=== PATIENT | female | born 1940 | race Caucasian/White ===

== ENCOUNTER → 2017-02-02 | Day surgery (SDC) | payer OTHER ==
[2017-01-13 13:41] VITALS: Ht 160 cm; Wt 80.5 kg
[~2017-02-02] VITALS: Ht 160 cm; Wt 80.5 kg
[~2017-02-02] MED LIST: 500ML BSS 0.3ML EPI 1:1000PF IRRIG ONE; ACETAMINOPHEN 325 MG TAB PO PRN; ALPPOPS5 OP; AMOX500C3 PO; AMVISC PLUS 0.8ML SYRINGE INT OCU ONE; ATOR10TA88 PO; AcetaZOLAMIDE 250 MG TAB PO SCH; BETAXOLOL HCL 0.25% OP SUSP PER DROP CHARGE OPR SCH; BRIMONIDINE TART 0.2% OP SOLN PER DROP CHARGE ONE; BSS FLUSH ONE; ENDOCOAT 0.85ML SYRINGE INT OCU ONE; EpINEphrine INJ 1MG/ML AMP 1 MG/ML AMP ONE; LACTATED RINGER'S 1000ML 500 ML IV SCH; LEVO88TA3 PO; LIDOCAINE 4% OP SOLN DROP CHARGE ONE; LIDOCAINE 4% OP SOLN DROP CHARGE OPR SCH; LIDOCAINE HCL 1% MPF 2 ML VIAL ONE; MIDAZOLAM HCL 1 MG/ML 2ML VIAL ONE; MIX: 4ML BSS 1ML EPI 1:1000 PF INSTIL ONE; MOXIFLOXACIN OPH SOLN PER DROP CHARGE ONE; OCUCOAT 1 ML SOLN IO ONE; OFLO0.3S4 OPL; PHENYLEPHRINE HCL 10% OP SOLN PER DROP CHARGE OPR SCH; POVIDONE-IODINE OP SOLN 30 ML BTL ONE; PRED1SUS3 OPL; PROPARACAINE 0.5% OP SOLN PER DROP CHARGE OPR SCH; PROPARACAINE HCL 0.5% OP SOLN 15 ML BTL OPR ONE; TOBRAMYCIN/DEXAMETHASONE OPH OINT PER APPLN CHARGE ONE
--- NOTE | 2017-02-02 06:41 | History & Physical Bridge - [place] ---
H&P Re-Evaluation Bridge Note: I have examined the patient, reviewed the History & Physical and in the interval since the performance of the History & Physical I have noted the following changes of clinical significance: No changes noted
[2017-02-02] MEDS: PHENYLEPHRINE HCL 2.5% OP SOLN PER DROP CHARGE OPR SCH ×2 (06:49→06:55)
[2017-02-02] MEDS: TROPICAMIDE 1% OP SOLN PER DROP CHARGE OPR SCH ×2 (06:50→06:55)
[2017-02-02] MEDS: CYCLOPENTOLATE HCL 1% OP SOLN PER DROP CHARGE OPR SCH ×2 (06:51→06:56)
[2017-02-02] MEDS: MOXIFLOXACIN OPH SOLN PER DROP CHARGE OPR SCH ×2 (06:52→07:08)
--- NOTE | 2017-02-02 07:59 | Discharge Instructions-SurgCtr ---
Discharge Instructions Date of Service Feb 02, 2017. Visit Reason for Visit: Cataract Right Eye Discharge Discharge Diagnosis / Problem: lens implant right eye Discharge Goals Goal(s): Improve function Activity Recommendations Activity Limitations: resume your previous activity Lifting Limitations: no more than 10 pounds Exercise/Sports Limitations: gradually increase as tolerated May Resume Sexual Activity: when tolerated Shower/Bathe: tomorrow Driving or Machine Use: resume 1 day after discharge Anesthesia . Post Anesthesia Instructions: If you have had General Anesthesia or IV Sedation: * Do not drive today. * Resume driving when surgeon permits. * Do not make important decisions or sign legal documents today. * Call surgeon for: 1. Temperature elevations greater than 101 degrees F. 2. Uncontrollable pain. 3. Excessive bleeding. 4. Persistent nausea and vomiting. 5. Medication intolerance (nausea, vomiting or rash). * For nausea and vomiting use only clear liquids such as: tea, soda, bouillon until nausea subsides, then gradually increase diet as tolerated. * If you have any concerns or questions, call your surgeon's office. If physician is unavailable and it is an emergency, call 911 or go to the nearest emergency room. . Instructions / Follow-Up Instructions / Follow-Up ACTIVITY RECOMMENDATIONS: * Light activities. * Mild irritation and blurred vision are common for the first few days. * You may walk outside, read, watch television. * Redness around the white part of the eye is common. MEDICATIONS: Resume previous medications unless instructed otherwise by your surgeon. * Take white Diamox (Acetazolamide) tablet at 1 pm today. Start all eye drops at 1 pm today: * Eye drops (today and tomorrow): Prednisone - one drop in operative eye every 3 hours while awake Ofloxacin - one drop in operative eye every 3 hours while awake SPECIAL CARE INSTRUCTIONS: * Tape plastic shield over eye to sleep at night. Call your doctor at with any concerns or problems. FOLLOW UP VISIT: Follow-up with Dr Barton at [place] office as scheduled. Diet Recommendations Home Diet: no limitations Procedures Procedures Performed: right eye femtosecond laser Pending Studies Studies pending at discharge: no Medical Emergencies . Who to Call and When: Medical Emergencies: If at any time you feel your situation is an emergency, please call 911 immediately. . Non-Emergent Contact Non-Emergency issues call your: Motor Electrician Call Non-Emergent contact if: your pain is not controlled [phone] . . "Provider Documentation" section prepared by Rich Barton. .
--- NOTE | 2017-02-02 08:03 | [facility] Operative Report ---
Operative Report Date of Service Feb 02, 2017. Operative Report 1. PREOPERATIVE DIAGNOSIS: Senile nuclear cataract, right eye. 2. POSTOPERATIVE DIAGNOSIS: Senile nuclear cataract, right eye. 3. PROCEDURE: Phacoemulsification of right cataract with posterior chamber lens implant, type Bausch [employer] Lomb, model MI60L, power +19.50 diopters. ANESTHESIA: Local standby. SURGEON: Dr. Barton. COMPLICATIONS: None. OPERATING TIME: 15 minutes. 4. OPERATION AND FINDINGS: DESCRIPTION OF PROCEDURE: The right pupil was dilated. The patient was transported to the Femto Laser room. The Femto Laser was used to make the primary incision, an astigmatic incision, and to soften the lens. The patient was transported to the operating room. The anesthetic was administered using a topical technique. The right eye was prepped and draped. A speculum was placed. A clear corneal incision was formed. The chamber was filled with Amvisc Plus and Endocoat. Epinephrine solution was used. A paracentesis was placed. A capsulorrhexis was performed. The nucleus was hydrodissected. The dense lens was removed with phacoemulsification. Time was 5.95 seconds. The aspiration unit was used to remove the cortex. The capsule was filled with Amvisc Plus. The lens implant was folded and placed into the capsule. The incisions were hydrated. The Amvisc was aspirated. The wound was secured with ReSure Sealant. The chamber was deep. The pupil was round. TobraDex ointment and Vigamox solution were placed. The speculum was removed. The patient was returned to the Recovery Room in stable condition. I attest to the content of the Intraoperative Record and any orders documented therein. Any exceptions are noted below. The scribe's documentation has been prepared in my presence, under my direction and personally reviewed by me in its entirety. I confirm that the note above accurately reflects all work, treatment, procedures, and medical decision making performed by me. I personally scribed for Rich Barton M.D. ([facility]) on 02/02/17 at 08:03. Electronically submitted by Елена Raymundo ([facility]).
--- NOTE | 2017-02-02 08:14 | Anesthesia Progress Nt - [facility] ---
Anesthesia Post Op Note Date & Time Feb 02, 2017 at 08:14 Vital Signs Pain Intensity: 0 Vital Signs Past 12 Hours Date Time Temp Pulse Resp B/P (MAP) Pulse Ox O2 Delivery O2 Flow Rate FiO2 02/02/17 08:03 36.1 75 16 162/81 (108) 98 Room Air 02/02/17 07:38 73 16 166/85 95 02/02/17 07:32 74 16 181/87 94 02/02/17 06:42 36.7 73 16 157/85 (109) 96 Room Air Notes Mental Status: alert / awake / arousable, participated in evaluation Pt Amnestic to Procedure: Yes Nausea / Vomiting: adequately controlled Pain: adequately controlled Airway Patency, RR, SpO2: stable & adequate BP & HR: stable & adequate Hydration State: stable & adequate Anesthetic Complications: no major complications apparent
[2017-02-02 08:31] VITALS: BP 143/78; PULSE 62; TEMP 36.2; O2SAT 99
== END | disposition home or self-care (01) ==
LOC: X.SURG 06:22
PROVIDERS: ATTEND Specialist
DX: H25.11 Age-related nuclear cataract, right eye (principal); E03.9 Hypothyroidism, unspecified; K21.9 Gastro-esophageal reflux disease without esophagitis; Z79.82 Long term (current) use of aspirin; I34.1 Nonrheumatic mitral (valve) prolapse; E78.5 Hyperlipidemia, unspecified

== ENCOUNTER → 2017-02-23 | Day surgery (SDC) | payer OTHER ==
[2017-02-10 14:39] VITALS: Ht 160 cm; Wt 80.5 kg
[~2017-02-23] VITALS: Ht 160 cm; Wt 80.5 kg
[~2017-02-23] MED LIST changes: +ATROPINE SULFATE 0.1 MG/ML 5ML SYR IV PRN; +BETAXOLOL HCL 0.25% OP SUSP PER DROP CHARGE OPL SCH; -BETAXOLOL HCL 0.25% OP SUSP PER DROP CHARGE OPR SCH; +LIDOCAINE 4% OP SOLN DROP CHARGE OPL SCH; -LIDOCAINE 4% OP SOLN DROP CHARGE OPR SCH; -PHENYLEPHRINE HCL 10% OP SOLN PER DROP CHARGE OPR SCH; +PROPARACAINE 0.5% OP SOLN PER DROP CHARGE OPL SCH; -PROPARACAINE 0.5% OP SOLN PER DROP CHARGE OPR SCH; -PROPARACAINE HCL 0.5% OP SOLN 15 ML BTL OPR ONE
[2017-02-23] MEDS: PHENYLEPHRINE HCL 2.5% OP SOLN PER DROP CHARGE OPL SCH ×2 (11:16→11:26)
[2017-02-23] MEDS: TROPICAMIDE 1% OP SOLN PER DROP CHARGE OPL SCH ×2 (11:17→11:27)
[2017-02-23] MEDS: CYCLOPENTOLATE HCL 1% OP SOLN PER DROP CHARGE OPL SCH ×2 (11:18→11:27)
[2017-02-23] MEDS: MOXIFLOXACIN OPH SOLN PER DROP CHARGE OPL SCH ×2 (11:20→11:29)
--- NOTE | 2017-02-23 12:10 | Discharge Instructions-SurgCtr ---
Discharge Instructions Date of Service Feb 23, 2017. Visit Reason for Visit: Left Cataract Discharge Discharge Diagnosis / Problem: lens implant left eye Discharge Goals Goal(s): Improve function Activity Recommendations Activity Limitations: resume your previous activity Lifting Limitations: no more than 10 pounds Exercise/Sports Limitations: gradually increase as tolerated May Resume Sexual Activity: when tolerated Shower/Bathe: tomorrow Driving or Machine Use: resume 1 day after discharge Anesthesia . Post Anesthesia Instructions: If you have had General Anesthesia or IV Sedation: * Do not drive today. * Resume driving when surgeon permits. * Do not make important decisions or sign legal documents today. * Call surgeon for: 1. Temperature elevations greater than 101 degrees F. 2. Uncontrollable pain. 3. Excessive bleeding. 4. Persistent nausea and vomiting. 5. Medication intolerance (nausea, vomiting or rash). * For nausea and vomiting use only clear liquids such as: tea, soda, bouillon until nausea subsides, then gradually increase diet as tolerated. * If you have any concerns or questions, call your surgeon's office. If physician is unavailable and it is an emergency, call 911 or go to the nearest emergency room. . Instructions / Follow-Up Instructions / Follow-Up ACTIVITY RECOMMENDATIONS: * Light activities. * Mild irritation and blurred vision are common for the first few days. * You may walk outside, read, watch television. * Redness around the white part of the eye is common. MEDICATIONS: Resume previous medications unless instructed otherwise by your surgeon. * Take white Diamox (Acetazolamide) tablet at 3 pm today. Start all eye drops at 3 pm today: * Eye drops (today and tomorrow): Prednisone - one drop in operative eye every 3 hours while awake Ofloxacin - one drop in operative eye every 3 hours while awake SPECIAL CARE INSTRUCTIONS: * Tape plastic shield over eye to sleep at night. Call your doctor at with any concerns or problems. FOLLOW UP VISIT: Follow-up with Dr Barton at [place] office as scheduled. Diet Recommendations Home Diet: no limitations Procedures Procedures Performed: Left Eye Cataract Phacoemulsification With Intraocular Lens Implant Pending Studies Studies pending at discharge: no Medical Emergencies . Who to Call and When: Medical Emergencies: If at any time you feel your situation is an emergency, please call 911 immediately. . Non-Emergent Contact Non-Emergency issues call your: Field Interviewer Call Non-Emergent contact if: your pain is not controlled [phone] . . "Provider Documentation" section prepared by Rich Barton. .
--- NOTE | 2017-02-23 12:12 | [facility] Operative Report ---
Operative Report Date of Service Feb 23, 2017. Operative Report 1. PREOPERATIVE DIAGNOSIS: Senile nuclear cataract, left eye. 2. POSTOPERATIVE DIAGNOSIS: Senile nuclear cataract, left eye. 3. PROCEDURE: Phacoemulsification of left cataract with posterior chamber lens implant, type Bausch [employer] Lomb, model MI60L, power +19.0 diopters. ANESTHESIA: Local standby. SURGEON: Dr. Barton. COMPLICATIONS: None. OPERATING TIME: 10 minutes. 4. OPERATION AND FINDINGS: DESCRIPTION OF PROCEDURE: The left pupil was dilated. The anesthetic was administered using a topical technique. The left eye was prepped and draped. A speculum was placed. A clear corneal incision was formed. The chamber was filled with Amvisc Plus and Endocoat. Epinephrine solution was used. A paracentesis was placed. A capsulorrhexis was performed. The nucleus was hydrodissected. A dense lens was removed with phacoemulsification. Time was 12.61 seconds. The aspiration unit was used to remove the cortex. The capsule was filled with Amvisc Plus. The lens implant was folded and placed into the capsule. The incision was hydrated. The Amvisc was aspirated. The wound was secure. The chamber was deep. The pupil was round. Brimonidine, TobraDex ointment and Vigamox solution were placed. The speculum was removed. The patient was returned to the Recovery Room in stable condition. I attest to the content of the Intraoperative Record and any orders documented therein. Any exceptions are noted below. The scribe's documentation has been prepared in my presence, under my direction and personally reviewed by me in its entirety. I confirm that the note above accurately reflects all work, treatment, procedures, and medical decision making performed by me. I personally scribed for Rich Barton M.D. ([facility]) on 02/23/17 at 12:12. Electronically submitted by Елена Raymundo ([facility]).
[2017-02-23 12:13] VITALS: TEMP 36.4
--- NOTE | 2017-02-23 12:29 | Anesthesia Progress Nt - [facility] ---
Anesthesia Post Op Note Date & Time Feb 23, 2017 at 12:28 Vital Signs Pain Intensity: 0 Vital Signs Past 12 Hours Date Time Temp Pulse Resp B/P (MAP) Pulse Ox O2 Delivery O2 Flow Rate FiO2 02/23/17 12:13 36.4 62 16 130/79 (96) 98 Room Air 02/23/17 11:01 36.6 61 16 115/75 (88) 96 Room Air Notes Mental Status: alert / awake / arousable, participated in evaluation Pt Amnestic to Procedure: Yes Nausea / Vomiting: adequately controlled Pain: adequately controlled Airway Patency, RR, SpO2: stable & adequate BP & HR: stable & adequate Hydration State: stable & adequate Anesthetic Complications: no major complications apparent
[2017-02-23 12:35] VITALS: BP 121/76; PULSE 58; O2SAT 98
== END | disposition home or self-care (01) ==
LOC: X.SURG 09:46
PROVIDERS: ATTEND Specialist
DX: H25.12 Age-related nuclear cataract, left eye (principal)

== ENCOUNTER → 2017-05-24 | Outpatient (CLI) | payer OTHER ==
[~2017-05-24] MED LIST changes: -500ML BSS 0.3ML EPI 1:1000PF IRRIG ONE; -ACETAMINOPHEN 325 MG TAB PO PRN; -AMVISC PLUS 0.8ML SYRINGE INT OCU ONE; +ATOR10TA82 PO; -ATOR10TA88 PO; -ATROPINE SULFATE 0.1 MG/ML 5ML SYR IV PRN; -AcetaZOLAMIDE 250 MG TAB PO SCH; -BETAXOLOL HCL 0.25% OP SUSP PER DROP CHARGE OPL SCH; -BRIMONIDINE TART 0.2% OP SOLN PER DROP CHARGE ONE; -BSS FLUSH ONE; -ENDOCOAT 0.85ML SYRINGE INT OCU ONE; -EpINEphrine INJ 1MG/ML AMP 1 MG/ML AMP ONE; -LACTATED RINGER'S 1000ML 500 ML IV SCH; -LIDOCAINE 4% OP SOLN DROP CHARGE ONE; -LIDOCAINE 4% OP SOLN DROP CHARGE OPL SCH; -LIDOCAINE HCL 1% MPF 2 ML VIAL ONE; -MIDAZOLAM HCL 1 MG/ML 2ML VIAL ONE; -MIX: 4ML BSS 1ML EPI 1:1000 PF INSTIL ONE; -MOXIFLOXACIN OPH SOLN PER DROP CHARGE ONE; -OCUCOAT 1 ML SOLN IO ONE; -POVIDONE-IODINE OP SOLN 30 ML BTL ONE; -PROPARACAINE 0.5% OP SOLN PER DROP CHARGE OPL SCH; -TOBRAMYCIN/DEXAMETHASONE OPH OINT PER APPLN CHARGE ONE
--- NOTE | 2017-05-24 10:03 | DIAGNOSTIC IMAGING REPORT ---
LUMBAR SPINE MIN 4 VIEWS HISTORY: 76 years-old Female LOWER BACK AND LEG PAIN chronic low back and right leg pain with out recent injury COMPARISON: Lumbar spine radiographs 08/15/2012. TECHNIQUE: 5 views of the lumbar spine FINDINGS: 14 degrees dextroscoliosis of the lumbar spine is noted measured from L1-L4. The bones appear mildly demineralized. 6 mm anterolisthesis L4 on L5 has slightly progressed from prior study. There is 4 mm retrolisthesis L2 on L3 and 5 mm anterolisthesis L5 on S1 appear unchanged. Both of these findings are likely secondary to long-standing facet arthropathy. Severe facet arthrosis is seen within the lower lumbar spine. Advanced intervertebral disc space narrowing at L5-S1 and L1-L2. Moderate intervertebral disc space narrowing at L4-L5. These findings appear unchanged. No compression deformity identified. No spondylolysis identified. Imaged soft tissues are unremarkable. Degenerative changes involve the bilateral hips. There is atherosclerosis of the aorta. IMPRESSION: 1. No acute fracture or dislocation. 2. 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 3. 4 mm retrolisthesis L2 on L3 with stepwise anterolisthesis of the lower lumbar spine as above is likely secondary to long-standing facet arthropathy. The above report was generated using voice recognition software. It may contain grammatical, syntax or spelling errors. Electronically signed by: Tye Beckham M.D. 05/24/2017 10:02 AM Dictated Date/Time: 05/24/2017 9:57 AM
== END | disposition home or self-care (01) ==
LOC: C.RDSM 12:12
PROVIDERS: ATTEND Internal Medicine
DX: M47.816 Spondylosis without myelopathy or radiculopathy, lumbar region (principal); M43.16 Spondylolisthesis, lumbar region

== ENCOUNTER 2022-01-15 07:12 | Observation (INO) ==
--- NOTE | 2021-12-09 09:29 | PAT Medication Instructions ---
Medication Instructions Date of Service December 09, 2021 Home Medications Medication Instructions Recorded amoxicillin 500 mg tablet 2,000 mg PO ONCE PRN #4 tab 11/04/21 amoxicillin 500 mg tablet 2,000 mg PO ONCE PRN atorvastatin 10 mg tablet 10 mg PO QPM levothyroxine 88 mcg capsule 88 mcg PO QAM ibuprofen 200 mg tablet 200 mg PO BID PRN Continue as directed amoxicillin 500 mg tablet 2,000 mg PO ONCE PRN (if needed) ASK your surgeon for instructions ibuprofen 200 mg tablet 200 mg PO BID PRN Take morning of surgery With a small sip of water, OTHERWISE NOTHING TO EAT OR DRINK AFTER MIDNIGHT: levothyroxine 88 mcg capsule 88 mcg PO QAM Take evening before surgery atorvastatin 10 mg tablet 10 mg PO QPM Other Notes If you have any questions please call us at [phone] or [phone] or [phone] or [phone]
--- NOTE | 2021-12-10 11:02 | Anesthesiology Consultation ---
Date of Service December 10, 2021 Assessment & Plan (1) Encounter for pre-operative examination: - COVID screening: Per assessment on 12/10/2021: Travel screen negative, no known COVID-19 positive contacts or current COVID-19 related symptoms in past 2 weeks. Pt vaccinated. Surgeon arranging preop COVID testing, scheduled 01/13/2022. Awaiting results. Chart Review Chart Review: Acceptable Risk for Surgery and Patient seen in Pre Admission Testing Teaching & Discussion Pre-Anesthesia Teaching/Discussion Notes: Instructed NPO after midnight before surgery, except medications with 15 cc of water. Medication instructions provided according to the PAT guidelines. History Surgery Operation Date: 01/15/22 10:30 Proposed Procedures p Right Total Hip Arthroplasty Anterior - Fuad Garcia DO Height/Weight Height: 5 ft 3 in Weight: 74.6 kg Allergies Allergy/AdvReac Type Severity Reaction Status Date / Time No Known Allergies Allergy Mild Unverified 12/08/21 10:44 Medications Home Medications Medication Instructions Recorded Confirmed Last Taken amoxicillin 500 mg tablet 2,000 mg PO ONCE PRN #4 tab 11/04/21 12/08/21 Unknown atorvastatin 10 mg tablet 10 mg PO QPM 11/04/21 12/08/21 Unknown levothyroxine 88 mcg capsule 88 mcg PO QAM 11/04/21 12/08/21 Unknown ibuprofen 200 mg tablet 200 mg PO BID PRN 12/08/21 12/08/21 Unknown Past Medical History Medical History (Updated 12/10/21 @ 11:20 by Larisa Cardoso PA-C) H/O radioactive iodine thyroid ablation Hyperlipidemia Hyperthyroidism hx -- treated with iodine radiation (~1963) Hypothyroidism, acquired MVP (mitral valve prolapse) 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 Exercise / Class Metabolic Activity III < 4 Walking/Shop/Light housework (denies CP or SOB, ambulates with walker, cane) Past Family History Family History (Updated 12/08/21 @ 10:56 by Yuridia Brunson RN) Brother FHx: multiple myeloma Mother FHx: stroke Other No family history of adverse response to anesthesia Past Surgical History Surgical History (Updated 12/08/21 @ 10:55 by Yuridia Brunson RN) History of cataract surgery bilateral History of colonoscopy History of tonsillectomy Hx of lumpectomy breast cyst (benign) Past Anesthesia History No Hx of Anesthesia Complications and No Family Hx of Anesthesia Complications History of PONV No Hx of PONV and No Hx of Motion Sickness Social History Smoking Status: Former smoker tobacco type: cigarettes Do You Dip or Chew Tobacco: No Smoking End Date: 1961 Hx Alcohol Use: No Hx Substance Use: No substance use type: does not use Review of Systems Snoring, denies witnessed apneas. Occasional reflux with certain foods, alleviated with TUMS. Patient denies chest pain, shortness of breath, dyspnea on exertion, fever, chills, cough, wheezing, or palpitations. Physical Exam Vital Signs Vitals BP 131/79 P 72 TEMP 98.3 SP02 97% on RA RESP 17 Physical Full cervical extension range of motion without pain TMD 3.5 finger breaths Mallampati Score 3, small oral opening Dentition: intact, one crown-lower left side; denies missing, chipped or loose teeth, implants or bridges Lungs: normal respiratory effort. Clear throughout to auscultation, no adventitious breath sounds Cardiac: regular rate and rhythm, no murmurs noted Carotid arteries: negative bruit bilat Lab Results Anesthesia Preop Results Results Anesthesia Widget: WBC 5.44 K/uL (4.8-10.8) 12/10/21 Hgb 14.3 g/dL (12.0-16.0) 12/10/21 Hct 42.8 % (37-47) 12/10/21 Plt 249 K/uL (130-400) 12/10/21 Na 139 mmol/L (136-145) 12/10/21 K 3.9 mmol/L (3.5-5.1) 12/10/21 Cl 105 mmol/L (98-107) 12/10/21 CO2 29 mmol/L (21-32) 12/10/21 BUN 23 mg/dl (6-23) 12/10/21 Creat 0.73 mg/dl (0.6-1.2) 12/10/21 Glucose Level 91 mg/dl (70-99(Fasting)) 12/10/21 PT 10.7 Seconds (9.0-12.0) 12/10/21 PTT 26.8 Seconds (21.0-31.0) 12/10/21 INR 1.0 (0.9-1.1) 12/10/21 Blood Type O Positive 12/10/21 Antibody Screen NEGATIVE 12/10/21 Testing Electrocardiogram Date: 12/10/21 NSR, rate 63 bpm Chest X-Ray Date: 12/10/21 Lung volumes are normal. Lungs are clear. There is no pneumothorax or pleural effusion. Cardiac size is normal. Mediastinal contours are normal. There is no evidence for pulmonary edema. There is slight S-shaped curvature of the thoracolumbar spine, partially imaged on this exam IMPRESSION: No acute cardiopulmonary findings. Echocardiogram Date: 03/06/18 EF 60-64% Grade I diastolic dysfunction Normal LV wall motion Mildly enlarged left atrium Mild aortic valve regurgitation Mild mitral regurgitation
--- NOTE | 2022-01-14 07:30 | History & Physical Report ---
Date of Service January 14, 2022 Assessment & Plan (1) Osteoarthritis of right hip: We will proceed with a right total hip arthroplasty. Postoperatively she will be started on aspirin for DVT prophylaxis and kept overnight in the hospital for postoperative medical management. She plans to have the hospital set up home health for discharge. History of Present Illness Chief Complaint: Osteoarthritis of the right hip . Primary Care Provider: NO PCP Yari is a pleasant 81-year-old female who has been dealing with chronic worsening right hip and groin pain. X-rays and clinical examination are diagnostic for advanced arthritis of the right hip. She was initially schedule to have a right hip replacement at [facility], but that was delayed due to COVID. She was little frustrated about some of the communication following that. She has been using a cane to ambulate. She is really struggling with her right hip. After failing extensive conservative treatment, she has elected proceed with a right anterior total of arthroplasty. Allergies Allergy/AdvReac Type Severity Reaction Status Date / Time No Known Allergies Allergy Mild Unverified 12/08/21 10:44 Home Medications Medication Instructions Recorded Confirmed Type amoxicillin 500 mg tablet 2,000 mg PO ONCE PRN #4 tab 11/04/21 12/08/21 Rx atorvastatin 10 mg tablet 10 mg PO QPM 11/04/21 12/08/21 History levothyroxine 88 mcg capsule 88 mcg PO QAM 11/04/21 12/08/21 History ibuprofen 200 mg tablet 200 mg PO BID PRN 12/08/21 12/08/21 History Past Med/Surg History Medical History H/O radioactive iodine thyroid ablation Hyperlipidemia Hyperthyroidism hx -- treated with iodine radiation (~1963) Hypothyroidism, acquired MVP (mitral valve prolapse) 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 Surgical History History of cataract surgery bilateral History of colonoscopy History of tonsillectomy Hx of lumpectomy breast cyst (benign) Family History Brother FHx: multiple myeloma Mother FHx: stroke Other No family history of adverse response to anesthesia Social History Smoking Status: Former smoker Second Hand Exposure: Yes (child); Hx Alcohol Use: No Hx Substance Use: No Preferred Language: Hong Konger Communication Ability: Effective Casino Cage Supervisor Required: No Beliefs That Will Affect Care: None Current Living Situation: Spouse Feels Safe at Home: Yes Assistive Devices: Glasses and Walker Review of Systems All systems reviewed & are unremarkable except as noted in HPI & below. Physical Exam On physical examination the right hip, she ambulates with a cane. She is decreased range of motion. She has pain with forced internal and external rotation. . Constitutional WD/WN, vitals as above Eyes PERRL, conjunctivae normal, anicteric sclerae ENMT external ear and nose normal, oropharynx normal Neck trachea midline, no thyromegaly Respiratory normal respiratory effort Cardiovascular RRR, no murmur, no edema Gastrointestinal (Abdomen) normal bowel sounds, soft, nontender, no hepatosplenomegaly Psychiatric A+Ox3, euthymic affect Results & Data Results & Data Laboratory Results . Diagnostic Findings X-rays of the right hip show advanced osteoarthritis with joint space narrowing, osteophyte formation, and [id number] reticulation . PG Care Time/CCT Total # of Minutes Spent Total Time Spent with Patient: Total time spent is greater than 50% in coordination of care (as documented) at patient's floor/unit and/or counseling patient: Coding Level of Care Code None Diagnoses Osteoarthritis of right hip M16.11
[~2022-01-15 07:12] MED LIST changes: +ACETAMINOPHEN 500 MG TAB PO SCH; -ALPPOPS5 OP; -AMOX500C3 PO; -ATOR10TA82 PO; +BUPIVACAINE 0.5 % 5 MG/1 ML PF 10ML VIAL ONE; +FAMOTIDINE 20 MG TAB PO SCH; +GABAPENTIN 300 MG CAP PO SCH; +Ketorolac (*for OR use only*) 30 MG, dexAMETHasone 4 MG, KETAMINE HCL (**OR use only) 1... INFIL SCH; -LEVO88TA3 PO; +LR 500ML BOLUS, THEN 15ML/HR IV SCH; +LR 60ML/HR IV SCH; -OFLO0.3S4 OPL; -PRED1SUS3 OPL; +TRANEXAMIC ACID 1,000 MG **IV Intra-op IV SCH; +TRANEXAMIC ACID 1,000 MG **IV Pre-op IV SCH; +ceFAZolin 1000MG 1,000 MG/7.5 ML SYR IV SCH; +dexAMETHasone 4 MG TAB PO SCH
[2022-01-15] MEDS ORDERED: PROPOFOL IV EMULSION 10 MG/ML 20 ML VIAL IV ONE (07:36)
[2022-01-15] MEDS ORDERED: MIDAZOLAM HCL 1 MG/ML 2ML VIAL ONE (07:36)
[2022-01-15] MEDS ORDERED: LIDOCAINE 2% MPF LOCAL 5 ML VIAL INFIL ONE (07:36)
[2022-01-15] MEDS ORDERED: fentaNYL citrate 100 MCG/2 ML VIAL ONE (07:37)
--- NOTE | 2022-01-15 08:09 | History & Physical Bridge Note ---
Date of Service January 15, 2022 History & Physical Bridge Note I have examined the patient, reviewed the History & Physical and in the interval since the performance of the History & Physical I have noted the following changes of clinical significance: no changes noted
[2022-01-15] MEDS ORDERED: ORTHO JOINT ANESTHETIC ONE (08:36)
[2022-01-15] MEDS ORDERED: ePHEDrine sulfate 50 MG/ML AMP IV PRN (08:44)
[2022-01-15] MEDS ORDERED: fentaNYL citrate 100 MCG/2 ML VIAL IV PRN (08:44)
[2022-01-15] MEDS ORDERED: ONDANSETRON INJ 2 MG/ML 2 ML VIAL IV PRN ×2 (08:44→12:50)
[2022-01-15] MEDS ORDERED: ATROPINE SULFATE 0.1 MG/ML 10ML SYR IV PRN (08:44)
--- NOTE | 2022-01-15 10:27 | Operative Report ---
PG Post Operative Report Pre & Post Diagnosis Operation Date: 01/15/22 09:20 Pre-Op Diagnosis: Right Hip Osteoarthritis Post-Op Diagnosis: Right Hip Osteoarthritis I identified the patient and participated in the time-out.: Yes Procedure Operation Date: 01/15/22 09:20 Actual Procedures p Right Total Hip Arthroplasty Anterior--Uncemented(Right) - Fuad Garcia DO Surgeon Fuad Garcia DO Ob Gyn Physician Assistant Fuad Jones PAC Estimated Blood Loss 200 Findings Consistent with Post-Op Diagnosis Specimens Right femoral head Complications none Disposition Disposition: Recovery Room Description of Procedure Implants used I used a ZimmerBiomet total hip arthroplasty system with a size 4 standard offset Avenir Complete stem, a 50 mm G7 cup with a 25mm screw, an E1 polyethylene liner, a 36 mm ceramic head with a +7 neck. Yari arrived at the hospital for the above procedure. She was seen in the preoperative holding area and the operative extremity was identified and signed. She was given a spinal anesthetic, a preoperative antibiotic, and TXA. She was then taken back to the operating room and laid on the table in the supine position. She was given basic sedation. The operative leg was secured to a Puristst leg positioner. The hip was then prepped and draped in sterile fashion. A timeout was done and the patient and the operative extremity was properly identified. An anterior approach was used. Dissection was taken down through the fascia and the tensor muscle belly was retracted laterally and the rectus was retracted medially. The circumflex vessels were identified and ligated. The capsule was then incised and tagged for later repair. The femoral neck was then cut and the femoral head was removed. The acetabulum was exposed. Time was spent doing a complete circumferential labral release. Sequential reaming of the acetabulum up to a size 49 reamer was done. Final reamings were done under fluoroscopy to ensure appropriate version. A Biomet 50mm G7 cup was then impacted into place. A single 25 mm screw was placed. The E1 polyethylene liner was then snapped into place. Surrounding soft tissues were then injected with 100 cc of an orthopedic pain control cocktail. The proximal femur was then exposed. Sequential broaching up to a size 4 broach was done. Off that broach a size 36 head with a +7 neck was trialed. The hip was reduced and fluoroscopic images showed anatomic alignment of the implants in acceptable length. The broach was removed. The final size 4 standard offset Avenir Complete stem was then impacted into place. A ceramic 36mm head with a +7 neck was then impacted onto the stem and the hip was reduced. Final fluoroscopic images showed anatomic alignment of the hip. The capsule was then closed with #1 Vicryl suture. A dilute betadyne lavage was then done for 3 minutes. The joint was then irrigated with normal saline solution. The fascia was closed with #1 PDS suture. Skin was closed with 2-0 Vicryl, laine, and a Silverlon dressing. She was then transferred to a hospital bed and taken to the post anesthesia care unit in stable condition. She tolerated the procedure well. Fuad Jones PA-C, was present for the entire procedure. He was critical for patient positioning, prepping, draping, retraction exposure, wound closure and application of sterile dressing. I attest to the content of the Intraoperative Record and any orders documented therein. Any exceptions are noted below.
--- NOTE | 2022-01-15 11:37 | Anesthesiology Progress Note ---
Date of Service January 15, 2022 Anesthesia Post Procedure Vital Signs Vital Signs: Temp Pulse Pulse Resp BP Pulse Ox 01/15/22 11:30 97.7 F 65 14 135/75 97 01/15/22 11:20 65 13 141/74 H 92 01/15/22 11:10 68 19 142/77 H 98 01/15/22 11:00 66 12 131/69 99 01/15/22 10:50 97.5 F L 69 16 132/68 93 01/15/22 07:52 98.6 F 82 18 193/97 H 97 Transfer of Care Handoff Completed per policy Notes Mental Status: alert / awake / arousable and participated in evaluation Patient Amnestic to Procedure: Yes Nausea / Vomiting: adequately controlled Pain: adequately controlled Airway Patency, RR, SpO2: stable & adequate BP & HR: stable & adequate Hydration State: stable & adequate Neuraxial Anesthesia: was administered and sensory block is resolving Anesthetic Complications: no major complications apparent and Pt Satisfied with anesthetic care
--- NOTE | 2022-01-15 12:20 | Fluoroscopy Report ---
INTRAOPERATIVE RADIOGRAPHS CLINICAL HISTORY: Right hip arthroplasty. Fluoroscopy time: 16 seconds. FINDINGS: 2 spot fluoroscopic images of the right hip are presented. The initial image shows surgical absence of the right femoral head with a right acetabular cup in place. The second image shows a rig ht hip arthroplasty in near-anatomic alignment. A single cortical lag screw transfixes the acetabular cup. There is no evidence of acute fracture on these fluoroscopic views. IMPRESSION: Intraoperative images from a right hip arthroplasty procedure as above. Electronically signed by: Collin Tee M.D. 01/15/2022 12:19 PM
--- NOTE | 2022-01-15 12:47 | XRay Report ---
SINGLE VIEW PELVIS; SINGLE VIEW RIGHT HIP CLINICAL HISTORY: Postoperative examination. FINDINGS: An AP portable view of the hips and pelvis with a crosstable lateral portable view of the r ight hip are obtained. A bipolar right hip arthroplasty is in near-anatomic alignment. A single carl ical lag screw transfixes the acetabular cup. No acute fracture is identified. There are expected pos toperative changes overlying the right hip including skin clips, subcutaneous gas, and soft tissue sw elling. Mild degenerative change is noted in the left hip. IMPRESSION: Expected postoperative findings status post right hip arthroplasty. No acute fracture is seen. ACT 112: Negative or not required by law. Electronically signed by: Collin Tee M.D. 01/15/2022 12:45 PM
[2022-01-15] MEDS ORDERED: bisacodyL 10 MG SUPP PR PRN (12:50)
[2022-01-15] MEDS ORDERED: MAGNESIUM HYDROXIDE SUSP 30 ML UDC PO PRN (12:50)
[2022-01-15] MEDS ORDERED: NALOXONE HCL 0.4 MG/1 ML VIAL/CARP IV PRN (12:50)
[2022-01-15] MEDS ORDERED: HYDROmorphone INJ 0.5 MG/0.5 ML SYR IV PRN (12:50)
[2022-01-15] MEDS ORDERED: oxyCODONE HCL IR 5 MG TAB (IMMEDIATE RELEASE) PO PRN (12:50)
[2022-01-15] MEDS ORDERED: METOCLOPRAMIDE HCL INJ 5 MG/ML 2 ML VIAL IV PRN (12:50)
[2022-01-15] MEDS: SODIUM CHLORIDE 0.9% 1000ML 1,000 ML IV SCH ×2 (13:35→23:19)
[2022-01-15] MEDS: KETOROLAC TROMETHAMINE 15 MG/ML VIAL IV SCH ×2 (14:07→18:22)
[2022-01-15] MEDS: ACETAMINOPHEN 500 MG TAB PO SCH ×2 (15:00→21:00)
[2022-01-15] MEDS: ceFAZolin 2000MG 2,000 MG/15 ML SYR IV SCH (16:48)
[2022-01-15] MEDS: DOCUSATE SODIUM 100 MG CAP PO SCH (20:27)
[2022-01-15] MEDS: ASPIRIN 81 MG ECTAB PO SCH (20:27)
[2022-01-15] MEDS ORDERED: SENNA 8.6 MG TAB PO SCH (21:00)
[2022-01-15] MEDS ORDERED: ATORVASTATIN 10 MG TAB PO SCH (21:00)
[2022-01-16] MEDS: ceFAZolin 2000MG 2,000 MG/15 ML SYR IV SCH (01:13)
[2022-01-16] MEDS: KETOROLAC TROMETHAMINE 15 MG/ML VIAL IV SCH ×2 (01:13→06:01)
[2022-01-16] MEDS: ACETAMINOPHEN 500 MG TAB PO SCH (06:01)
[2022-01-16] MEDS: DOCUSATE SODIUM 100 MG CAP PO SCH (07:33)
[2022-01-16] MEDS: ASPIRIN 81 MG ECTAB PO SCH (07:33)
[2022-01-16] MEDS ORDERED: dexAMETHasone 4 MG TAB PO SCH (08:00)
[2022-01-16] MEDS ORDERED: MULTIVITAMIN TAB PO SCH (09:00)
[2022-01-16] MEDS ORDERED: LEVOTHYROXINE SODIUM 88 MCG TABLET PO SCH (09:00)
--- NOTE | 2022-01-16 09:02 | Orthopedic Progress Note ---
Date of Service January 16, 2022 Assessment & Plan (1) Status post right hip replacement: 1. Plan on discharge to home this morning. 2. Start PT as scheduled. 3. Continue with MARY stockings and Aspirin 81mg BID for 6 weeks 4. Keep surgical incision clean and dry 5. Follow up in office in 2-3 weeks for suture removal and evaluation Temi Greenberg is an 81 y/o female who is POD#1 from a right hip arthroplasty. Overall doing very well. Minimal complaints of pain in her right hip. She has been up and ambulating with assistance with the use of a walker. We will plan in discharging her to home this morning. She is scheduled for home health to come to her house post operatively. I answered her questions at bedside today. Review of Systems All systems reviewed & are unremarkable except as noted in HPI & below. Physical Exam Incision is clean, dry. No drainage, erythema. She is neurovascularly intact right LE, Results & Data Results & Data Laboratory Results . Diagnostic Findings . PG Care Time/CCT Total # of Minutes Spent Total Time Spent with Patient: Total time spent is greater than 50% in coordination of care (as documented) at patient's floor/unit and/or counseling patient: Coding Level of Care Code 63502 Post Operative Follow-Up Diagnoses Status post right hip replacement Z96.641
--- NOTE | 2022-01-18 17:25 | Discharge Summary ---
Date of Service January 18, 2022 Admission HPI (Per Admitting) Yari is a pleasant 81-year-old female who has been dealing with chronic worsening right hip and groin pain. X-rays and clinical examination are diagnostic for advanced arthritis of the right hip. She was initially schedule to have a right hip replacement at [facility], but that was delayed due to COVID. She was little frustrated about some of the communication following that. She has been using a cane to ambulate. She is really struggling with her right hip. After failing extensive conservative treatment, she has elected proceed with a right anterior total of arthroplasty. Admission Exam (Per Admitting) On physical examination the right hip, she ambulates with a cane. She is decreased range of motion. She has pain with forced internal and external rotation. . Principal Diagnosis Same as "Discharge Diagnosis" noted below under Discharge Instructions. Discharge Exam Incision is clean, dry. No drainage, erythema. She is neurovascularly intact right LE, Discharge Data Procedures Performed Operation Date: 01/15/22 09:20 Actual Procedures p Right Total Hip Arthroplasty Anterior--Uncemented(Right) - Fuad Garcia DO Ordered Studies 01/15/22 09:20 FL hip RT 1V Routine Hospital Course (1) Status post right hip replacement: On January 15, 2022 Yari arrived at [facility] and underwent a right hip replacement without complication. Postoperatively she was started on aspirin for DVT prophylaxis and transferred to the general orthopedic floors. Her hospital course was uneventful. On postop day #1, her vital signs were stable and her pain was well controlled. She was able to participate well with physical therapy doing ambulation and range of motion exercises. She was then discharged home. She will follow-up with orthopedics in 2 weeks. PG Care Time/CCT Total # of Minutes Spent Total Time Spent with Patient: Total time spent is greater than 50% in coordination of care (as documented) at patient's floor/unit and/or counseling patient: Discharge Plan Discharge Items Patient Disposition: Home - Home Health Services Reason For Visit: Right Hip Osteoarthritis Discharge Diagnosis: Right hip replacement Activity: Per Instructions section Non-emergency contact: Surgeon Call non-emergency contact if: your wound has increased redness and your wound has increased drainage Follow-up/Referrals: PCP,NO [Primary Care Provider] - Diet: Regular Addtl Attending Provider Instructions: Activity and Therapy Recommendations: * If you are using [facility] then therapy will be provided at your home until they feel you have accomplished all of your goals. * If you are using [facility] then Physical Therapy will be provided until they feel you are ready to start Outpatient Physical Therapy. * If you are not using home therapy then Outpatient Physical Therapy should start about 3-5 days from your day of surgery. Therapy will last about 6-10 weeks * You were shown a series of exercises in the hospital. Do these exercises three times each day including the exercises you were shown in physical therapy. * Get up and walk several times each day.~ For the first four weeks, try not to stand or walk for more than one hour at a time. If you do stand or walk for more than one hour, you will not hurt anything, but your leg will likely swell.~~ * As you feel comfortable, you may change from the walker or crutches to a cane and~then to independent walking. Medications: * Narcotic You will likely be sent home from the hospital with a prescription for the narcotic pain medication that worked best throughout your stay. * Aspirin Most patients will be required to take Aspirin 81mg twice a day for 6 weeks after surgery. This is obtained wydy-non-pyibuau and a prescription is not necessary. * Other medications may be prescribed for specific circumstances. If you have any questions, please call the office at . * Resume previous home medications unless otherwise instructed TEDs/Elastic Stockings: The white elastic stockings help limit swelling and prevent blood clots from forming in your legs. The more you wear them, the more they work. Wear them for six weeks. Dressing Care: Leave the Silverlon dressing in place for 7 days. After 7 days you may remove the dressing. If the incision is not draining then you may leave the laine open to air. If there is a little bit of drainage or if the laine are getting stuck on your clothing then cover the incision with a dry dressing. The laine will be removed at your 2 week follow-up appointment. Showering: You may shower with the Silverlon dressing in place. Do not let the shower spray hit the dressing directly. Pat the Silverlon dressing dry. If the dressing becomes wet underneath, then simply remove the dressing. Keep the incision dry until you are 7 days out from the day of surgery. After 7 days you may remove the Silverlon dressing and shower with the laine exposed. Let soapy water run over the laine and pat them dry. Do not scrub or soak the incision. Things To Watch For: * Drainage from the incision site that occurs more than one week after your surgery. * Increased redness at the incision site. * Fever above 102 degrees Fahrenheit. * Unusual chest pain or shortness of breath. * Call [facility] at with any of the above problems Follow-Up Visit: Follow-up with Dr. Garcia's PA (Fuad Jones) 2-3 weeks after your day of surgery. He will remove your laine and answer any questions. If you have any additional questions or concerns, Dr Garcia is usually in the office at the same time and will be available An appointment was probably scheduled when you signed-up for surgery in the office. If you have any questions call Office Instructions: More detailed instructions as well as Frequently Asked Questions were provided in a folder by our office when you signed-up for surgery. Please review these instructions when you get home. If you have any further questions or concerns, please feel free to call the office at [phone] Pending Studies at Discharge: No Stand-Alone Forms: My [facility] brands4friends, Smoking Cessation Medications and DC Order Prescriptions: New aspirin 81 mg Tablet,Delayed Release (Dr/Ec) 81 mg PO BID 42 Days Qty: 84 RF: 0 oxycodone-acetaminophen 5-325 mg tablet 1 tab PO Q6H PRN (Reason: pain) Qty: 30 RF: 0 Continued levothyroxine 88 mcg capsule 88 mcg PO QAM RF: 0 atorvastatin 10 mg tablet 10 mg PO QPM RF: 0 amoxicillin 500 mg tablet 2,000 mg PO ONCE PRN (Reason: prophylaxis) Qty: 4 RF: 2 ibuprofen 200 mg Tablet 200 mg PO BID PRN (Reason: Pain) RF: 0 Discharge Orders: Discharge Order (Routine); Ordered 01/16/22 Ordered By: Fuad Harkins/Other Patient Handouts: How Your Hip Works, Falls Prevent Adjust Living Space Admission Data Admit Date/Time: 01/15/22 10:52 Attending Provider: Fuad Garcia Admit Provider: Fuad Garcia Primary Care Provider: PCP,NO Other Interventions: Discharge Summary Assessment (RN) Last Done: 01/16/22 09:13
== END 2022-01-16 11:23 | disposition home health service (06) ==
LOC: 3E 07:12 → ASU 07:12